=== PATIENT | male | born 1945 | race Caucasian/White ===

== ENCOUNTER 2019-09-25 10:13 | Inpatient (IN) | payer MEDICARE, MEDICAID ==
[~2019-09-25] VITALS: Ht 170.2 cm; Wt 60.8 kg
[2019-09-25] MEDS ORDERED: BACITRACIN ZINC OINT UDPKT TOP ONE (11:15)
[2019-09-25] MEDS ORDERED: TETANUS, DIPHTHERIA, PERTUSSIS VAC/PF 0.5ML (>7YR OLD) IM ONE (11:15)
[2019-09-25] MEDS ORDERED: LIDOCAINE 1%/EPI 1:100,000 10 ML VIAL IJ ONE (11:15)
[2019-09-25] MEDS ORDERED: LIDOCAINE HCL/EPINEPHRINE 1%-EPI 1:100,000 20 ML VIAL INFIL NR (11:30)
[2019-09-25] MEDS ORDERED: LORAZEPAM 2MG/ML CPJ IV ONE (13:15)
[2019-09-25] MEDS ORDERED: SODIUM CHLORIDE 0.9% 1000ML BAG (SEPSIS BOLUS) IV ONE (13:15)
[2019-09-25 15:37] LABS: BASOPHILS % 3.5 % (0.0-2.0); HEMATOCRIT. 29.9 % (42.0-52.0); HEMOGLOBIN. 9.9 g/dL (14.0-18.0); LYMPHOCYTES % 27.8 % (20.0-50.0); MEAN CORPUSCULAR HEMOGLOBIN 28.5 pg (28.0-32.0); MEAN CORPUSCULAR VOLUME 86.2 fL (80.0-94.0); MEAN PLATELET VOLUME 8.5 fl (7.4-10.4); MONOCYTES % 9.4 % (2.0-8.0); NEUTROPHILS % 57.3 % (40.0-76.0); PLATELET 298 x1000/uL (130-400); RED BLOOD CELL COUNT 3.47 mill/uL (4.7-6.1); RED CELL DISTRIBUTION WIDTH 19.6 % (11.6-14.6)
[2019-09-25 15:44] LABS: CHLORIDE 101 mEq/L (98-107)
[2019-09-25 15:49] LABS: INR 1.1
[2019-09-25 16:07] LABS: CLARITY URINE CLEAR (CLEAR); COLOR URINE YELLOW (YELLOW); KETONES URINE NEGATIVE (NEGATIVE); LEUKOCYTE ESTERASE URINE NEGATIVE (NEGATIVE); NITRITE URINE NEGATIVE (NEGATIVE); OCCULT BLOOD URINE NEGATIVE (NEGATIVE); PH URINE 5.5 (4.5-8.0); PROTEIN URINE 1+ (NEGATIVE); UROBILINOGEN URINE 0.2 E.U./dL (0.2-1.0)
[2019-09-25] MEDS ORDERED: CEFTRIAXONE 2 G PREMIX 50 ML IV ONE (16:30)
[2019-09-25] MEDS ORDERED: DEXTROSE 50% WATER 50ML SYRINGE IV PRN (18:00)
[2019-09-25] MEDS ORDERED: IPRATROPIUM/ALBUTEROL 0.5-3(2.5)MG/3ML NEB NEB PRN (18:00)
[2019-09-25] MEDS ORDERED: CLONIDINE 0.1MG TABLET PO PRN (18:00)
[2019-09-25] MEDS ORDERED: LORAZEPAM 0.5MG TABLET PO PRN (18:00)
[2019-09-25] MEDS ORDERED: ACETAMINOPHEN 650MG SUPP PR PRN (18:00)
[2019-09-25] MEDS ORDERED: DOCUSATE SODIUM 100MG CAPSULE PO PRN (18:00)
[2019-09-25] MEDS ORDERED: ONDANSETRON HCL 4MG/2ML INJ IV PRN (18:00)
[2019-09-25] MEDS ORDERED: DIPHENHYDRAMINE 50MG/ML VIAL IV PRN (18:00)
[2019-09-25] MEDS ORDERED: ASPIRIN 325MG EC TABLET PO ONE (18:00)
[2019-09-25] MEDS ORDERED: MAGNESIUM/ALUMINUM HYDROXIDE/SIMETHICONE 30ML UDC PO PRN (18:00)
[2019-09-25] MEDS ORDERED: HYDROCODONE/ACETAMINOPHEN 5/325MG TABLET PO PRN (18:00)
[2019-09-25] MEDS ORDERED: ACETAMINOPHEN 325MG TABLET PO PRN (18:00)
[2019-09-25] MEDS ORDERED: SODIUM CHLORIDE 0.9% 1,000 ML IV SCH (18:00)
[2019-09-25] MEDS ORDERED: GUAIFENESIN 200MG/10ML SUGAR FREE UDC PO PRN (18:00)
[2019-09-25] MEDS: BLOOD SUGAR DIAGNOSTIC STRIP TEST SCH (18:32)
[2019-09-25] MEDS: FAMOTIDINE 20MG/2ML VIAL IV SCH (18:32)
[2019-09-25] MEDS: INSULIN LISPRO 100 UNITS/ML SUBCUT SCH (18:57)
[2019-09-25] MEDS ORDERED: PIPERACILLIN/TAZOBACTAM 2.25 G in DEXTROSE 5% WATER 50 ML IV NR (19:00)
[2019-09-25] MEDS ORDERED: NA PHOS,M-B/NA PHOS,DI-BA ENEMA 118ML PR PRN (21:00)
[2019-09-25] MEDS ORDERED: ENOXAPARIN 80MG/0.8ML SYR SUBCUT SCH (22:15)
[2019-09-26] MEDS: PIPERACILLIN/TAZOBACTAM 2.25 G in DEXTROSE 5% WATER 50 ML IV SCH ×3 (03:58→18:30)
[2019-09-26 08:04] LABS: BASOPHILS % 2.1 % (0.0-2.0); EOSINOPHILS % 4.1 % (0.0-5.0); HEMATOCRIT. 28.6 % (42.0-52.0); HEMOGLOBIN. 9.5 g/dL (14.0-18.0); LYMPHOCYTES % 36.8 % (20.0-50.0); MEAN CORPUSCULAR HEMOGLOBIN 28.7 pg (28.0-32.0); MEAN CORPUSCULAR VOLUME 86.2 fL (80.0-94.0); MONOCYTES % 8.4 % (2.0-8.0); NEUTROPHILS % 48.6 % (40.0-76.0); PLATELET 277 x1000/uL (130-400); RED BLOOD CELL COUNT 3.32 mill/uL (4.7-6.1); RED CELL DISTRIBUTION WIDTH 19.8 % (11.6-14.6)
[2019-09-26 08:09] LABS: CHLORIDE 104 mEq/L (98-107)
[2019-09-26] MEDS: BLOOD SUGAR DIAGNOSTIC STRIP TEST SCH ×5 (08:15→20:59)
[2019-09-26 08:19] LABS: LDL CHOLESTEROL 92 mg/dL (5-100)
[2019-09-26] MEDS: INSULIN LISPRO 100 UNITS/ML SUBCUT SCH ×4 (08:20→21:15)
[2019-09-26 08:21] LABS: HDL CHOLESTEROL 53 mg/dL (40-59); T4 FREE 1.35 ng/dL (0.76-1.46)
[2019-09-26] MEDS: FAMOTIDINE 20MG/2ML VIAL IV SCH (09:00)
[2019-09-26 10:14] LABS: OPIATES URINE SCREEN NEGATIVE (NEGATIVE)
[2019-09-26 10:15] LABS: *AMPHETAMINES SCREEN URINE NEGATIVE (NEGATIVE); CANNABINOID URINE SCREEN NEGATIVE (NEGATIVE); PHENCYCLIDINE URINE SCREEN NEGATIVE (NEGATIVE)
[2019-09-26 10:16] LABS: *BARBITURATES SCREEN URINE NEGATIVE (NEGATIVE); *BENZODIAZEPINES SCREEN URINE NEGATIVE (NEGATIVE); *COCAINE SCREEN URINE NEGATIVE (NEGATIVE)
[2019-09-26 10:17] LABS: METHADONE URINE SCREEN NEGATIVE (NEGATIVE)
[2019-09-26 10:53] LABS: BG BASE EXCESS 0.4 mmol/L (-2.0-2.0); BG CARBOXYHEMOGLOBIN 0.3 % (0.5-1.5); BG DEOXYHEMOGLOBIN 3.1 % (0.0-5.0); BG FRACTION INSPIRED OXYGEN 21; BG HCO3 ACT 24.1 mmol/L (22.0-26.0); BG METHEMOGLOBIN 0.3 % (0.0-1.5); BG OXYGEN SATURATION 96.9 % (92.0-98.5); BG OXYHEMOGLOBIN 96.3 % (94.0-97.0); BG PCO2 35.6 mmHg (35.0-45.0); BG PH 7.449 (7.350-7.450); BG PO2 91.3 mmHg (75.0-100.0); BG SAMPLE SITE RIGHT RADIAL; BG TOTAL HEMOGLOBIN 10.2 g/dL (12.0-18.0); BG VENT MODE ROOM AIR
[2019-09-26 12:59] LABS: HEPATITIS B SURFACE ANTIGEN NEGATIVE
[2019-09-26 13:26] LABS: HEPATITIS A AB IGM NEGATIVE (NEGATIVE)
[2019-09-26] MEDS ORDERED: FUROSEMIDE 40MG/4ML VIAL IVP NR (14:30)
[2019-09-26] MEDS ORDERED: CEFTRIAXONE 1 G PREMIX 50 ML IV SCH ×2 (14:45→15:30)
[2019-09-26 16:00] VITALS: BP 158/78
[2019-09-26] MEDS ORDERED: HYDRALAZINE 20MG/ML VIAL IV PRN (16:00)
[2019-09-26 16:34] VITALS: BP 158/78
[2019-09-26] MEDS ORDERED: FERR-71 MT (19:21)
[2019-09-26] MEDS ORDERED: SIMV-43 MT (19:21)
[2019-09-26] MEDS ORDERED: LISI-604 MT (19:21)
[2019-09-26] MEDS ORDERED: SITA25TA3 MT (19:21)
[2019-09-26] MEDS ORDERED: FOLI0.8C MT (19:21)
[2019-09-26] MEDS ORDERED: PIOG15TA68 MT (19:21)
[2019-09-26] MEDS ORDERED: DOCU100T MT (19:21)
[2019-09-26] MEDS ORDERED: CARV6.2548 MT (19:21)
[2019-09-26] MEDS ORDERED: FAMO20TA8 PO (19:21)
[2019-09-26] MEDS ORDERED: VITA100T MT (19:21)
[2019-09-26] MEDS ORDERED: ASPI-1497 MT (19:21)
[2019-09-26] MEDS ORDERED: QUET25TA34 PO (19:21)
[2019-09-26 20:00] VITALS: BP 142/63
[2019-09-26] MEDS ORDERED: ENOXAPARIN 60MG/0.6ML SYR SUBCUT SCH (21:00)
[2019-09-27] VITALS: BP 135/61
[2019-09-27] MEDS: PIPERACILLIN/TAZOBACTAM 2.25 G in DEXTROSE 5% WATER 50 ML IV SCH ×3 (00:24→12:23)
[2019-09-27 04:00] VITALS: BP 127/76
[2019-09-27] MEDS: BLOOD SUGAR DIAGNOSTIC STRIP TEST SCH ×2 (06:39→11:56)
[2019-09-27] MEDS: INSULIN LISPRO 100 UNITS/ML SUBCUT SCH ×2 (06:45→12:55)
[2019-09-27 08:00] VITALS: BP 162/77
[2019-09-27] MEDS ORDERED: FUROSEMIDE 40MG/4ML VIAL IVP SCH (09:00)
[2019-09-27] MEDS: FAMOTIDINE 20MG/2ML VIAL IV SCH (09:55)
[2019-09-27 12:00] VITALS: BP 144/79
[2019-09-27] MEDS ORDERED: CEFTRIAXONE 1 G PREMIX 50 ML IV SCH (14:00)
[2019-09-27 14:17] VITALS: BP 144/79
== END 2019-09-27 14:58 | disposition home or self-care (01) | DRG 70 ==
LOC: ER 10:16 → 5WST 17:40 → ENRESERV 09-26 15:23
PROVIDERS: ADMIT Internal Medicine; ATTEND Internal Medicine
DX: G93.41 Metabolic encephalopathy (principal); I50.33 Acute on chronic diastolic (congestive) heart failure; I13.0 Hypertensive heart and chronic kidney disease with heart failure and stage 1 through stage 4 chronic kidney disease, or unspecified chronic kidney disease; E87.1 Hypo-osmolality and hyponatremia; I82.511 Chronic embolism and thrombosis of right femoral vein; L03.116 Cellulitis of left lower limb; L03.115 Cellulitis of right lower limb; D64.9 Anemia, unspecified; N18.9 Chronic kidney disease, unspecified; I13.10 Hypertensive heart and chronic kidney disease without heart failure, with stage 1 through stage 4 chronic kidney disease, or unspecified chronic kidney disease; F03.90 Unspecified dementia, unspecified severity, without behavioral disturbance, psychotic disturbance, mood disturbance, and anxiety; S61.412A Laceration without foreign body of left hand, initial encounter; X58.XXXA Exposure to other specified factors, initial encounter; R74.8 Abnormal levels of other serum enzymes; R94.4 Abnormal results of kidney function studies; Y93.89 Activity, other specified; Y92.89 Other specified places as the place of occurrence of the external cause; Y99.8 Other external cause status; Z87.19 Personal history of other diseases of the digestive system
CPT/HCPCS: 36415; 36600; 71045; 74176; 80053; 80061; 80305; 81003; 82140; 82375; 82805; 82962; 83605; 83880; 84145; 84439; 84443; 84484; 85025; 86705; 86709; 86803; 86850; 86900; 87340; 90715; 93005; 93306; 93970; 97162; 99285; J0696; J1200; J1650; J1815; J1940; J2060; J2543; J3490; J7030; J7060

== ENCOUNTER 2020-01-20 06:13 | Inpatient (IN) | payer MEDICARE, MEDICAID ==
[2020-01-20] VITALS (34 sets, daily range): BP systolic 82–163; BP diastolic 43–85
[~2020-01-20] VITALS: Ht 182.9 cm; Wt 64.0 kg
[~2020-01-20 06:13] MED LIST: ASPI-1497 MT; CARV6.2548 MT; DOCU100T MT; FAMO20TA8 PO; FERR-71 MT; FOLI0.8C MT; LISI-604 MT; PIOG15TA68 MT; QUET25TA34 PO; SIMV-43 MT; SITA25TA3 MT; VITA100T MT
[2020-01-20] MEDS ORDERED: ETOMIDATE 2MG/ML 10ML VIAL IV ONE (06:30)
[2020-01-20] MEDS ORDERED: SUCCINYLCHOLINE CHLORIDE 200MG/10ML IV ONE (06:30)
[2020-01-20] MEDS ORDERED: PROPOFOL 10MG/ML 100ML 100 ML IV ONE (06:45)
[2020-01-20] MEDS ORDERED: NOREPINEPHRINE 4MG/250ML PMX 250 ML IV ONE ×2 (06:53→10:30)
[2020-01-20 07:05] LABS: BASOPHILS % 0.2 % (0.0-2.0); EOSINOPHILS % 0.1 % (0.0-5.0); HEMATOCRIT. 31.5 % (42.0-52.0); HEMOGLOBIN. 10.5 g/dL (14.0-18.0); LYMPHOCYTES % 8.9 % (20.0-50.0); MEAN CORPUSCULAR HEMOGLOBIN 32.4 pg (28.0-32.0); MEAN CORPUSCULAR VOLUME 97.5 fL (80.0-94.0); MONOCYTES % 10.4 % (2.0-8.0); NEUTROPHILS % 80.4 % (40.0-76.0); PLATELET 172 x1000/uL (130-400); RED BLOOD CELL COUNT 3.23 mill/uL (4.7-6.1); RED CELL DISTRIBUTION WIDTH 15.3 % (11.6-14.6)
[2020-01-20 07:12] LABS: CHLORIDE 98 mEq/L (98-107)
[2020-01-20 07:13] LABS: INR 1.1; PROTHROMBIN TIME 11.4 sec (9.6-11.0)
[2020-01-20 07:16] LABS: ETHANOL BLOOD < 10 mg/dL
[2020-01-20 07:19] LABS: CLARITY URINE CLOUDY (CLEAR); COLOR URINE YELLOW (YELLOW); KETONES URINE TRACE (NEGATIVE); LEUKOCYTE ESTERASE URINE NEGATIVE (NEGATIVE); NITRITE URINE NEGATIVE (NEGATIVE); OCCULT BLOOD URINE NEGATIVE (NEGATIVE); PROTEIN URINE NEGATIVE (NEGATIVE); SPECIFIC GRAVITY URINE 1.019 (1.005-1.030); UROBILINOGEN URINE 0.2 E.U./dL (0.2-1.0)
[2020-01-20 07:29] LABS: *AMPHETAMINES SCREEN URINE NEGATIVE (NEGATIVE); *BARBITURATES SCREEN URINE NEGATIVE (NEGATIVE); *BENZODIAZEPINES SCREEN URINE PRESUMTIVE POSITIVE (NEGATIVE); *COCAINE SCREEN URINE NEGATIVE (NEGATIVE)
[2020-01-20 07:30] LABS: CANNABINOID URINE SCREEN NEGATIVE (NEGATIVE); METHADONE URINE SCREEN NEGATIVE (NEGATIVE); OPIATES URINE SCREEN NEGATIVE (NEGATIVE); PHENCYCLIDINE URINE SCREEN NEGATIVE (NEGATIVE)
[2020-01-20] MEDS ORDERED: PIPERACILLIN/TAZ 3.375G PREMIX 50 ML IV SCH (08:00)
[2020-01-20] MEDS ORDERED: CALCIUM CHLORIDE 1,000 MG in DEXT 5% WATER 90 ML IV ONE (08:00)
[2020-01-20] MEDS ORDERED: INSULIN REGULAR 0.5UNIT/ML SYR(NEO) IV ONE (08:00)
[2020-01-20] MEDS ORDERED: ALBUTEROL (0.5%) 2.5MG/0.5ML NEB HHN ONE (08:00)
[2020-01-20] MEDS ORDERED: VANCOMYCIN 1 G PREMIX 200 ML IV SCH ×2 (08:00→12:00)
[2020-01-20] MEDS ORDERED: INSULIN REGULAR (HUMULIN R) 300UNITS/3ML IV SCH (08:00)
[2020-01-20] MEDS ORDERED: DEXTROSE 50% WATER 50ML SYRINGE IV ONE (08:00)
[2020-01-20] MEDS ORDERED: PIPERACILLIN/TAZOBACTAM 3.375GM/50ML PREMIX IV ONE (08:00)
[2020-01-20 08:06] LABS: BG BASE EXCESS -6.9 mmol/L (-2.0-2.0); BG CARBOXYHEMOGLOBIN 0.3 % (0.5-1.5); BG DEOXYHEMOGLOBIN 1.1 % (0.0-5.0); BG FRACTION INSPIRED OXYGEN 100; BG HCO3 ACT 19.3 mmol/L (22.0-26.0); BG METHEMOGLOBIN 0.2 % (0.0-1.5); BG OXYGEN SATURATION 98.9 % (92.0-98.5); BG OXYHEMOGLOBIN 98.4 % (94.0-97.0); BG PCO2 41.3 mmHg (35.0-45.0); BG PH 7.287 (7.350-7.450); BG PO2 264.3 mmHg (75.0-100.0); BG SAMPLE SITE RIGHT BRACHIAL; BG TIDAL VOLUME(mL) 450 mL; BG TOTAL HEMOGLOBIN 9.9 g/dL (12.0-18.0); BG VENT MODE VENT - A/C; BG VENT RATE 16 set
[2020-01-20] MEDS ORDERED: NA PHOS,M-B/NA PHOS,DI-BA ENEMA 118ML PR PRN (11:45)
[2020-01-20] MEDS ORDERED: LORAZEPAM 0.5MG TABLET PO PRN (11:45)
[2020-01-20] MEDS ORDERED: GUAIFENESIN 200MG/10ML SUGAR FREE UDC PO PRN (11:45)
[2020-01-20] MEDS ORDERED: MAGNESIUM/ALUMINUM HYDROXIDE/SIMETHICONE 30ML UDC PO PRN (11:45)
[2020-01-20] MEDS ORDERED: HYDROCODONE/ACETAMINOPHEN 5/325MG TABLET PO PRN (11:45)
[2020-01-20] MEDS ORDERED: DIPHENHYDRAMINE 50MG/ML VIAL IV PRN (11:45)
[2020-01-20] MEDS ORDERED: MORPHINE SULFATE 2 MG/ML CPJ (NOT FOR IM USE) IV PRN (11:45)
[2020-01-20] MEDS ORDERED: CLONIDINE 0.1MG TABLET PO PRN (11:45)
[2020-01-20] MEDS ORDERED: ACETAMINOPHEN 325MG TABLET PO PRN (11:45)
[2020-01-20] MEDS ORDERED: ACETAMINOPHEN 650MG SUPP PR PRN (11:45)
[2020-01-20] MEDS ORDERED: IPRATROPIUM/ALBUTEROL 0.5-3(2.5)MG/3ML NEB NEB PRN (11:45)
[2020-01-20] MEDS ORDERED: ONDANSETRON HCL 4MG/2ML INJ IV PRN (11:45)
[2020-01-20] MEDS ORDERED: DOCUSATE SODIUM 100MG CAPSULE PO PRN (11:45)
[2020-01-20 11:59] LABS: BG BASE EXCESS 3.6 mmol/L (-2.0-2.0); BG CARBOXYHEMOGLOBIN 0.3 % (0.5-1.5); BG DEOXYHEMOGLOBIN 1.4 % (0.0-5.0); BG HCO3 ACT 30.4 mmol/L (22.0-26.0); BG METHEMOGLOBIN 0.3 % (0.0-1.5); BG OXYGEN SATURATION 98.6 % (92.0-98.5); BG PCO2 57.3 mmHg (35.0-45.0); BG PH 7.342 (7.350-7.450); BG PO2 211.8 mmHg (75.0-100.0); BG SAMPLE SITE RIGHT RADIAL; BG TIDAL VOLUME(mL) 450 mL; BG TOTAL HEMOGLOBIN 10.9 g/dL (12.0-18.0); BG VENT MODE VENT - A/C; BG VENT RATE 16 set
[2020-01-20] MEDS: IPRATROPIUM/ALBUTEROL 0.5-3(2.5)MG/3ML NEB NEB SCH ×2 (14:47→20:10)
[2020-01-20] MEDS: PROPOFOL 10MG/ML 100ML 100 ML IV PRN ×2 (15:35→19:14)
[2020-01-20] MEDS ORDERED: PIPERACILLIN/TAZOBACTAM 2.25 G in DEXTROSE 5% WATER 50 ML IV SCH (16:00)
[2020-01-20] MEDS ORDERED: DEXTROSE 50% WATER 50ML SYRINGE IV PRN (16:45)
[2020-01-20] MEDS ORDERED: INSULIN LISPRO 100 UNITS/ML SUBCUT SCH (17:00)
[2020-01-20] MEDS: BLOOD SUGAR DIAGNOSTIC STRIP TEST SCH ×2 (17:30→21:57)
[2020-01-20 17:36] LABS: CREATINE KINASE MB FRACTION 1.4 ng/mL (0.5-3.6)
[2020-01-20] MEDS: METHYLPREDNISOLONE SOD SUCC 40 MG/ML VIAL IV SCH (17:55)
[2020-01-20] MEDS: SODIUM CHLORIDE 0.45% 1,000 ML IV SCH (17:55)
[2020-01-20] MEDS: FAMOTIDINE 20MG/2ML VIAL IV SCH (17:56)
[2020-01-20] MEDS: ASPIRIN 81MG TABLET PO SCH (17:56)
[2020-01-20] MEDS ORDERED: ENOXAPARIN 30MG/0.3ML SYR SUBCUT SCH (18:00)
[2020-01-20] MEDS: INSULIN LISPRO 100 UNITS/ML SUBCUT SCH ×2 (18:16→22:06)
[2020-01-20] MEDS ORDERED: VANCOMYCIN 1 G PREMIX 200 ML IV NR (19:00)
[2020-01-20] MEDS: PIPERACILLIN/TAZOBACTAM 2.25 G in DEXTROSE 5% WATER 50 ML IV SCH ×2 (19:03→23:47)
[2020-01-21] VITALS (99 sets, daily range): BP systolic 72–169; BP diastolic 45–76
[2020-01-21 00:01] LABS: CREATINE KINASE 64 IU/L (39-308)
[2020-01-21 00:02] LABS: CREATINE KINASE MB FRACTION < 1.0 ng/mL (0.5-3.6)
[2020-01-21] MEDS: IPRATROPIUM/ALBUTEROL 0.5-3(2.5)MG/3ML NEB NEB SCH ×4 (00:44→20:55)
[2020-01-21] MEDS ORDERED: NOREPINEPHRINE 8 MG in DEXT 5% WATER 242 ML IV PRN (01:30)
[2020-01-21] MEDS: METHYLPREDNISOLONE SOD SUCC 40 MG/ML VIAL IV SCH ×3 (02:37→17:51)
[2020-01-21 04:55] LABS: HEMATOCRIT. 32.5 % (42.0-52.0); MEAN CORPUSCULAR HEMOGLOBIN 31.3 pg (28.0-32.0); MEAN CORPUSCULAR VOLUME 92.6 fL (80.0-94.0); MEAN PLATELET VOLUME 8.2 fl (7.4-10.4); PLATELET 157 x1000/uL (130-400); RED BLOOD CELL COUNT 3.51 mill/uL (4.7-6.1)
[2020-01-21] MEDS: PIPERACILLIN/TAZOBACTAM 2.25 G in DEXTROSE 5% WATER 50 ML IV SCH ×3 (05:05→17:51)
[2020-01-21 05:20] LABS: CHLORIDE 100 mEq/L (98-107)
[2020-01-21 05:28] LABS: LDL CHOLESTEROL 35 mg/dL (5-100)
[2020-01-21 05:30] LABS: HDL CHOLESTEROL 83 mg/dL (40-59)
[2020-01-21] MEDS: INSULIN LISPRO 100 UNITS/ML SUBCUT SCH ×4 (06:59→21:52)
[2020-01-21] MEDS: BLOOD SUGAR DIAGNOSTIC STRIP TEST SCH ×4 (06:59→21:49)
[2020-01-21 07:33] LABS: BG BASE EXCESS 3.3 mmol/L (-2.0-2.0); BG CARBOXYHEMOGLOBIN 0.3 % (0.5-1.5); BG DEOXYHEMOGLOBIN 1.1 % (0.0-5.0); BG FRACTION INSPIRED OXYGEN 80; BG HCO3 ACT 29.2 mmol/L (22.0-26.0); BG METHEMOGLOBIN 0.3 % (0.0-1.5); BG OXYGEN SATURATION 98.9 % (92.0-98.5); BG OXYHEMOGLOBIN 98.3 % (94.0-97.0); BG PCO2 50.6 mmHg (35.0-45.0); BG PH 7.379 (7.350-7.450); BG PO2 257.5 mmHg (75.0-100.0); BG SAMPLE SITE RIGHT RADIAL; BG TIDAL VOLUME(mL) 450 mL; BG TOTAL HEMOGLOBIN 10.5 g/dL (12.0-18.0); BG VENT MODE VENT - A/C; BG VENT RATE 16 set
[2020-01-21] MEDS: FAMOTIDINE 20MG/2ML VIAL IV SCH (08:32)
[2020-01-21] MEDS: ASPIRIN 81MG TABLET PO SCH (08:32)
[2020-01-21 09:08] LABS: PLATELET ESTIMATE NORMAL
[2020-01-21] MEDS ORDERED: SODIUM POLYSTYRENE SULFONATE 15 G/60 ML BOT PO NR (10:30)
[2020-01-21] MEDS ORDERED: RISPERIDONE 0.5MG TABLET PO SCH (13:15)
[2020-01-21] MEDS ORDERED: INSULIN GLARGINE UD 100 UNITS/ML SYR SUBCUT NR (14:30)
[2020-01-21] MEDS: SODIUM CHLORIDE 0.45% 1,000 ML IV SCH (14:38)
[2020-01-21] MEDS: VALPROIC ACID 250MG CAPSULE PO SCH ×2 (16:51→16:57)
[2020-01-21] MEDS: VALPROATE SODIUM 250MG/5ML UDC GT SCH (17:51)
[2020-01-21] MEDS ORDERED: ENOXAPARIN 40MG/0.4ML SYR SUBCUT SCH (18:00)
[2020-01-22] VITALS (82 sets, daily range): BP systolic 105–159; BP diastolic 47–106
[2020-01-22] MEDS: PROPOFOL 10MG/ML 100ML 100 ML IV PRN ×2 (00:02→07:03)
[2020-01-22] MEDS: PIPERACILLIN/TAZOBACTAM 2.25 G in DEXTROSE 5% WATER 50 ML IV SCH ×3 (00:02→11:43)
[2020-01-22] MEDS: IPRATROPIUM/ALBUTEROL 0.5-3(2.5)MG/3ML NEB NEB SCH ×4 (01:17→20:15)
[2020-01-22] MEDS: METHYLPREDNISOLONE SOD SUCC 40 MG/ML VIAL IV SCH ×3 (03:24→17:58)
[2020-01-22 05:59] LABS: HEMATOCRIT. 27.9 % (42.0-52.0); HEMOGLOBIN. 9.4 g/dL (14.0-18.0); MEAN CORPUSCULAR HEMOGLOBIN 30.9 pg (28.0-32.0); MEAN CORPUSCULAR VOLUME 91.9 fL (80.0-94.0); MEAN PLATELET VOLUME 8.9 fl (7.4-10.4); PLATELET 135 x1000/uL (130-400); RED BLOOD CELL COUNT 3.04 mill/uL (4.7-6.1); RED CELL DISTRIBUTION WIDTH 14.8 % (11.6-14.6)
[2020-01-22 06:00] LABS: CHLORIDE 99 mEq/L (98-107)
[2020-01-22] MEDS: BLOOD SUGAR DIAGNOSTIC STRIP TEST SCH ×4 (06:37→21:06)
[2020-01-22] MEDS: INSULIN LISPRO 100 UNITS/ML SUBCUT SCH ×4 (06:37→21:10)
[2020-01-22 08:24] LABS: BG BASE EXCESS 6.3 mmol/L (-2.0-2.0); BG FRACTION INSPIRED OXYGEN 50; BG HCO3 ACT 30.7 mmol/L (22.0-26.0); BG PCO2 42.7 mmHg (35.0-45.0); BG PH 7.474 (7.350-7.450); BG PO2 138.7 mmHg (75.0-100.0); BG SAMPLE SITE RIGHT RADIAL; BG TIDAL VOLUME(mL) 450 mL; BG VENT MODE VENT - A/C; BG VENT RATE 16 set
[2020-01-22 08:51] LABS: PLATELET ESTIMATE NORMAL
[2020-01-22] MEDS: VALPROATE SODIUM 250MG/5ML UDC GT SCH ×2 (09:09→17:58)
[2020-01-22] MEDS: ASPIRIN 81MG TABLET PO SCH (09:10)
[2020-01-22] MEDS: FAMOTIDINE 20MG/2ML VIAL IV SCH (09:15)
[2020-01-22] MEDS: SODIUM CHLORIDE 0.45% 1,000 ML IV SCH (09:30)
[2020-01-22] MEDS ORDERED: INSULIN GLARGINE UD 100 UNITS/ML SYR SUBCUT SCH (10:00)
[2020-01-22] MEDS ORDERED: INSULIN LISPRO 100 UNITS/ML SUBCUT NR (10:45)
[2020-01-22] MEDS: VANCOMYCIN 1 G PREMIX 200 ML IV SCH (12:13)
[2020-01-22] MEDS ORDERED: INSULIN GLARGINE UD 100 UNITS/ML SYR SUBCUT NR (13:00)
[2020-01-22] MEDS ORDERED: AZITHROMYCIN 500 MG TABLET GT NR (14:00)
[2020-01-22] MEDS: CEFEPIME 1,000 MG in DEXTROSE 5% WATER 50 ML IV SCH (16:47)
[2020-01-22 17:43] LABS: HEMATOCRIT 28.6 % (42.0-52.0); HEMOGLOBIN 9.6 g/dL (14.0-18.0)
[2020-01-22 17:51] LABS: TOTAL IRON BINDING CAPACITY 266 ug/dL (250-450)
[2020-01-22] MEDS: METRONIDAZOLE 500MG TABLET PO SCH (21:10)
[2020-01-23] VITALS (91 sets, daily range): BP systolic 96–164; BP diastolic 47–92
[2020-01-23] MEDS: IPRATROPIUM/ALBUTEROL 0.5-3(2.5)MG/3ML NEB NEB SCH ×4 (01:57→21:10)
[2020-01-23] MEDS: PROPOFOL 10MG/ML 100ML 100 ML IV PRN ×2 (02:15→09:50)
[2020-01-23] MEDS: CEFEPIME 1,000 MG in DEXTROSE 5% WATER 50 ML IV SCH ×2 (03:41→16:31)
[2020-01-23] MEDS: SODIUM CHLORIDE 0.45% 1,000 ML IV SCH (05:15)
[2020-01-23] MEDS: METHYLPREDNISOLONE SOD SUCC 40 MG/ML VIAL IV SCH ×2 (05:16→17:09)
[2020-01-23] MEDS: VANCOMYCIN 1 G PREMIX 200 ML IV SCH (05:16)
[2020-01-23] MEDS: BLOOD SUGAR DIAGNOSTIC STRIP TEST SCH ×4 (05:41→21:00)
[2020-01-23 05:49] LABS: CHLORIDE 101 mEq/L (98-107); HEMATOCRIT. 28.8 % (42.0-52.0); HEMOGLOBIN. 9.9 g/dL (14.0-18.0); MEAN CORPUSCULAR HEMOGLOBIN 31.7 pg (28.0-32.0); MEAN CORPUSCULAR VOLUME 92.2 fL (80.0-94.0); MEAN PLATELET VOLUME 9.2 fl (7.4-10.4); PLATELET 151 x1000/uL (130-400); RED BLOOD CELL COUNT 3.12 mill/uL (4.7-6.1); RED CELL DISTRIBUTION WIDTH 14.7 % (11.6-14.6)
[2020-01-23] MEDS: INSULIN LISPRO 100 UNITS/ML SUBCUT SCH ×4 (06:03→21:00)
[2020-01-23 06:25] LABS: VITAMIN B12 SERUM 1566 pg/mL (211-911)
[2020-01-23] MEDS: FAMOTIDINE 20MG/2ML VIAL IV SCH (08:07)
[2020-01-23] MEDS: ASPIRIN 81MG TABLET PO SCH (08:07)
[2020-01-23] MEDS: VALPROATE SODIUM 250MG/5ML UDC GT SCH ×2 (08:07→16:31)
[2020-01-23] MEDS: METRONIDAZOLE 500MG TABLET PO SCH ×2 (08:07→21:00)
[2020-01-23 09:37] LABS: BG BASE EXCESS 6.2 mmol/L (-2.0-2.0); BG CARBOXYHEMOGLOBIN 0.1 % (0.5-1.5); BG DEOXYHEMOGLOBIN 1.4 % (0.0-5.0); BG FRACTION INSPIRED OXYGEN 40; BG HCO3 ACT 30.5 mmol/L (22.0-26.0); BG OXYGEN SATURATION 98.6 % (92.0-98.5); BG OXYHEMOGLOBIN 98.5 % (94.0-97.0); BG PCO2 42.9 mmHg (35.0-45.0); BG PO2 175.1 mmHg (75.0-100.0); BG SAMPLE SITE RIGHT RADIAL; BG TIDAL VOLUME(mL) 450 mL; BG TOTAL HEMOGLOBIN 12.1 g/dL (12.0-18.0); BG VENT MODE VENT - A/C; BG VENT RATE 16 set
[2020-01-23] MEDS: AMLODIPINE 2.5MG TABLET PO SCH ×2 (09:49→21:00)
[2020-01-23] MEDS: INSULIN GLARGINE UD 100 UNITS/ML SYR SUBCUT SCH (09:50)
[2020-01-23 10:27] LABS: PLATELET ESTIMATE NORMAL
[2020-01-23] MEDS: FERROUS SULFATE 325MG TABLET PO SCH ×2 (11:36→16:31)
[2020-01-23] MEDS: AZITHROMYCIN 250 MG TABLET PO SCH (13:55)
[2020-01-23 14:01] LABS: BG BASE EXCESS 7.5 mmol/L (-2.0-2.0); BG DEOXYHEMOGLOBIN 1.4 % (0.0-5.0); BG FRACTION INSPIRED OXYGEN 40; BG HCO3 ACT 30.9 mmol/L (22.0-26.0); BG METHEMOGLOBIN 0.3 % (0.0-1.5); BG OXYGEN SATURATION 98.6 % (92.0-98.5); BG OXYHEMOGLOBIN 98.3 % (94.0-97.0); BG PCO2 38.4 mmHg (35.0-45.0); BG PH 7.523 (7.350-7.450); BG PO2 164.9 mmHg (75.0-100.0); BG PRESSURE SUPPORT 10; BG SAMPLE SITE RIGHT RADIAL; BG VENT MODE VENT - CPAP
[2020-01-23] MEDS: HALOPERIDOL LACTATE 5MG/ML VIAL IM PRN (16:56)
[2020-01-23 17:29] LABS: BG CARBOXYHEMOGLOBIN 0.3 % (0.5-1.5); BG DEOXYHEMOGLOBIN 1.8 % (0.0-5.0); BG FRACTION INSPIRED OXYGEN 35; BG HCO3 ACT 34.5 mmol/L (22.0-26.0); BG OXYGEN SATURATION 98.2 % (92.0-98.5); BG OXYHEMOGLOBIN 97.9 % (94.0-97.0); BG PCO2 52.9 mmHg (35.0-45.0); BG PH 7.432 (7.350-7.450); BG PO2 138.8 mmHg (75.0-100.0); BG SAMPLE SITE LEFT RADIAL; BG TOTAL HEMOGLOBIN 9.6 g/dL (12.0-18.0); BG VENT MODE MASK - AEROSOL
[2020-01-24] VITALS (45 sets, daily range): BP systolic 73–159; BP diastolic 42–77
[2020-01-24] MEDS: VANCOMYCIN 1 G PREMIX 200 ML IV SCH (00:16)
[2020-01-24] MEDS: IPRATROPIUM/ALBUTEROL 0.5-3(2.5)MG/3ML NEB NEB SCH ×4 (02:24→20:40)
[2020-01-24] MEDS: CEFEPIME 1,000 MG in DEXTROSE 5% WATER 50 ML IV SCH ×2 (03:21→15:16)
[2020-01-24 05:23] LABS: HEMATOCRIT. 36.8 % (42.0-52.0); LYMPHOCYTES % 10.8 % (20.0-50.0); MEAN CORPUSCULAR HEMOGLOBIN 31.1 pg (28.0-32.0); MEAN CORPUSCULAR VOLUME 95.5 fL (80.0-94.0); MEAN PLATELET VOLUME 9.2 fl (7.4-10.4); MONOCYTES % 4.6 % (2.0-8.0); NEUTROPHILS % 84.6 % (40.0-76.0); PLATELET 148 x1000/uL (130-400); RED BLOOD CELL COUNT 3.85 mill/uL (4.7-6.1); RED CELL DISTRIBUTION WIDTH 15.3 % (11.6-14.6)
[2020-01-24 05:32] LABS: CHLORIDE 100 mEq/L (98-107)
[2020-01-24] MEDS: FERROUS SULFATE 325MG TABLET PO SCH ×2 (06:50→17:41)
[2020-01-24] MEDS: METHYLPREDNISOLONE SOD SUCC 40 MG/ML VIAL IV SCH ×2 (06:50→17:41)
[2020-01-24] MEDS: HALOPERIDOL LACTATE 5MG/ML VIAL IM PRN ×2 (07:01→15:16)
[2020-01-24] MEDS: BLOOD SUGAR DIAGNOSTIC STRIP TEST SCH ×4 (07:23→21:00)
[2020-01-24] MEDS: INSULIN LISPRO 100 UNITS/ML SUBCUT SCH ×4 (07:26→21:00)
[2020-01-24 09:08] LABS: BG BASE EXCESS 8.3 mmol/L (-2.0-2.0); BG CARBOXYHEMOGLOBIN 0.3 % (0.5-1.5); BG DEOXYHEMOGLOBIN 1.7 % (0.0-5.0); BG FRACTION INSPIRED OXYGEN 35; BG HCO3 ACT 33.1 mmol/L (22.0-26.0); BG METHEMOGLOBIN 0.3 % (0.0-1.5); BG OXYGEN SATURATION 98.3 % (92.0-98.5); BG OXYHEMOGLOBIN 97.7 % (94.0-97.0); BG PCO2 47.9 mmHg (35.0-45.0); BG PH 7.458 (7.350-7.450); BG PO2 160.5 mmHg (75.0-100.0); BG SAMPLE SITE RIGHT RADIAL; BG TOTAL HEMOGLOBIN 10.3 g/dL (12.0-18.0); BG VENT MODE MASK - AEROSOL
[2020-01-24] MEDS: ASPIRIN 81MG TABLET PO SCH (09:14)
[2020-01-24] MEDS: VALPROATE SODIUM 250MG/5ML UDC GT SCH ×2 (09:14→17:41)
[2020-01-24] MEDS: FAMOTIDINE 20MG/2ML VIAL IV SCH (09:14)
[2020-01-24] MEDS: AMLODIPINE 2.5MG TABLET PO SCH ×2 (09:14→20:30)
[2020-01-24] MEDS: SODIUM CHLORIDE 0.45% 1,000 ML IV SCH (09:15)
[2020-01-24] MEDS: METRONIDAZOLE 500MG TABLET PO SCH ×2 (09:15→20:29)
[2020-01-24] MEDS: INSULIN GLARGINE UD 100 UNITS/ML SYR SUBCUT SCH (09:16)
[2020-01-24] MEDS ORDERED: VANCOMYCIN 750 MG PREMIX 150 ML IV SCH (13:00)
[2020-01-24] MEDS: AZITHROMYCIN 250 MG TABLET PO SCH (14:02)
[2020-01-25] VITALS (25 sets, daily range): BP systolic 95–158; BP diastolic 44–81
[2020-01-25] MEDS: IPRATROPIUM/ALBUTEROL 0.5-3(2.5)MG/3ML NEB NEB SCH ×4 (01:06→21:06)
[2020-01-25 05:13] LABS: HEMATOCRIT. 35.4 % (42.0-52.0); HEMOGLOBIN. 11.7 g/dL (14.0-18.0); MEAN CORPUSCULAR HEMOGLOBIN 30.6 pg (28.0-32.0); MEAN CORPUSCULAR VOLUME 92.6 fL (80.0-94.0); MEAN PLATELET VOLUME 9.2 fl (7.4-10.4); PLATELET 155 x1000/uL (130-400); RED BLOOD CELL COUNT 3.82 mill/uL (4.7-6.1); RED CELL DISTRIBUTION WIDTH 15.3 % (11.6-14.6)
[2020-01-25 05:14] LABS: CHLORIDE 97 mEq/L (98-107)
[2020-01-25] MEDS: HALOPERIDOL LACTATE 5MG/ML VIAL IM PRN (06:06)
[2020-01-25] MEDS: METHYLPREDNISOLONE SOD SUCC 40 MG/ML VIAL IV SCH ×2 (06:06→17:20)
[2020-01-25] MEDS: CEFEPIME 1,000 MG in DEXTROSE 5% WATER 50 ML IV SCH (06:07)
[2020-01-25] MEDS: BLOOD SUGAR DIAGNOSTIC STRIP TEST SCH ×4 (06:55→21:09)
[2020-01-25] MEDS: FERROUS SULFATE 325MG TABLET PO SCH ×2 (07:00→17:20)
[2020-01-25] MEDS: SODIUM CHLORIDE 0.45% 1,000 ML IV SCH (07:00)
[2020-01-25] MEDS: INSULIN LISPRO 100 UNITS/ML SUBCUT SCH ×4 (07:01→21:08)
[2020-01-25 08:33] LABS: PLATELET ESTIMATE NORMAL
[2020-01-25] MEDS: METRONIDAZOLE 500MG TABLET PO SCH (08:51)
[2020-01-25] MEDS: VALPROATE SODIUM 250MG/5ML UDC GT SCH ×2 (08:51→17:20)
[2020-01-25] MEDS: FAMOTIDINE 20MG/2ML VIAL IV SCH (08:51)
[2020-01-25] MEDS: AMLODIPINE 2.5MG TABLET PO SCH ×2 (08:52→20:28)
[2020-01-25] MEDS: ASPIRIN 81MG TABLET PO SCH (08:52)
[2020-01-25 09:40] LABS: BG BASE EXCESS 10.5 mmol/L (-2.0-2.0); BG CARBOXYHEMOGLOBIN 0.2 % (0.5-1.5); BG DEOXYHEMOGLOBIN 1.5 % (0.0-5.0); BG FRACTION INSPIRED OXYGEN 35; BG HCO3 ACT 36.9 mmol/L (22.0-26.0); BG METHEMOGLOBIN 0.3 % (0.0-1.5); BG OXYGEN SATURATION 98.5 % (92.0-98.5); BG PCO2 59.6 mmHg (35.0-45.0); BG PO2 148.3 mmHg (75.0-100.0); BG SAMPLE SITE RIGHT RADIAL; BG TOTAL HEMOGLOBIN 10.5 g/dL (12.0-18.0); BG VENT MODE MASK - AEROSOL
[2020-01-25] MEDS: INSULIN GLARGINE UD 100 UNITS/ML SYR SUBCUT SCH (10:19)
[2020-01-25] MEDS ORDERED: PIPERACILLIN/TAZOBACTAM 3.375 G in DEXT 5% WATER 100 ML IV SCH (15:00)
[2020-01-25] MEDS: MEROPENEM 1,000 MG in SODIUM CHLORIDE 0.9% 100 ML IV SCH ×2 (15:54→22:21)
[2020-01-26] VITALS (25 sets, daily range): BP systolic 108–163; BP diastolic 54–103
[2020-01-26] MEDS: IPRATROPIUM/ALBUTEROL 0.5-3(2.5)MG/3ML NEB NEB SCH ×4 (01:18→20:37)
[2020-01-26] MEDS: HALOPERIDOL LACTATE 5MG/ML VIAL IM PRN (01:50)
[2020-01-26] MEDS ORDERED: MORPHINE SULFATE 2 MG/ML CPJ (NOT FOR IM USE) IV PRN (05:50)
[2020-01-26] MEDS: MEROPENEM 1,000 MG in SODIUM CHLORIDE 0.9% 100 ML IV SCH ×3 (06:04→21:49)
[2020-01-26] MEDS: METHYLPREDNISOLONE SOD SUCC 40 MG/ML VIAL IV SCH ×2 (06:04→17:01)
[2020-01-26] MEDS: BLOOD SUGAR DIAGNOSTIC STRIP TEST SCH ×4 (06:04→20:08)
[2020-01-26] MEDS: INSULIN LISPRO 100 UNITS/ML SUBCUT SCH ×4 (06:05→20:10)
[2020-01-26] MEDS: FERROUS SULFATE 325MG TABLET PO SCH ×2 (06:06→16:58)
[2020-01-26 06:20] LABS: HEMATOCRIT. 34.5 % (42.0-52.0); HEMOGLOBIN. 11.6 g/dL (14.0-18.0); LYMPHOCYTES % 9.9 % (20.0-50.0); MEAN CORPUSCULAR VOLUME 91.9 fL (80.0-94.0); MEAN PLATELET VOLUME 8.8 fl (7.4-10.4); MONOCYTES % 9.1 % (2.0-8.0); PLATELET 195 x1000/uL (130-400); RED BLOOD CELL COUNT 3.75 mill/uL (4.7-6.1); RED CELL DISTRIBUTION WIDTH 14.8 % (11.6-14.6)
[2020-01-26 06:23] LABS: CHLORIDE 95 mEq/L (98-107)
[2020-01-26 06:41] LABS: VALPROIC ACID < 3.0 ug/mL (50-100)
[2020-01-26 07:04] LABS: VITAMIN B12 SERUM 1992 pg/mL (211-911)
[2020-01-26] MEDS: ASPIRIN 81MG TABLET PO SCH (09:00)
[2020-01-26] MEDS: VALPROATE SODIUM 250MG/5ML UDC GT SCH ×2 (11:05→16:58)
[2020-01-26] MEDS: AMLODIPINE 2.5MG TABLET PO SCH ×2 (11:05→20:01)
[2020-01-26] MEDS: FAMOTIDINE 20MG/2ML VIAL IV SCH (11:06)
[2020-01-26] MEDS: INSULIN GLARGINE UD 100 UNITS/ML SYR SUBCUT SCH (12:00)
[2020-01-27] VITALS: BP 151/66
[2020-01-27 04:00] VITALS: BP 138/62
[2020-01-27] MEDS: MEROPENEM 1,000 MG in SODIUM CHLORIDE 0.9% 100 ML IV SCH ×3 (05:56→21:10)
[2020-01-27 06:29] LABS: BASOPHILS % 0.1 % (0.0-2.0); EOSINOPHILS % 0.2 % (0.0-5.0); HEMATOCRIT. 32.4 % (42.0-52.0); LYMPHOCYTES % 24.5 % (20.0-50.0); MEAN CORPUSCULAR HEMOGLOBIN 30.9 pg (28.0-32.0); MEAN CORPUSCULAR VOLUME 91.3 fL (80.0-94.0); MEAN PLATELET VOLUME 8.3 fl (7.4-10.4); MONOCYTES % 13.2 % (2.0-8.0); PLATELET 220 x1000/uL (130-400); RED BLOOD CELL COUNT 3.55 mill/uL (4.7-6.1); RED CELL DISTRIBUTION WIDTH 14.5 % (11.6-14.6)
[2020-01-27 06:31] LABS: CHLORIDE 93 mEq/L (98-107)
[2020-01-27] MEDS: BLOOD SUGAR DIAGNOSTIC STRIP TEST SCH ×4 (06:38→21:10)
[2020-01-27 08:32] VITALS: BP 125/68
[2020-01-27] MEDS: IPRATROPIUM/ALBUTEROL 0.5-3(2.5)MG/3ML NEB NEB SCH ×3 (08:58→22:07)
[2020-01-27] MEDS ORDERED: QUETIAPINE FUMARATE 25MG TABLET PO SCH (09:30)
[2020-01-27] MEDS: FERROUS SULFATE 325MG TABLET PO SCH ×2 (09:38→17:51)
[2020-01-27] MEDS: AMLODIPINE 2.5MG TABLET PO SCH ×2 (09:38→21:10)
[2020-01-27] MEDS: VALPROATE SODIUM 250MG/5ML UDC GT SCH ×2 (09:38→17:51)
[2020-01-27] MEDS: ASPIRIN 81MG TABLET PO SCH (09:38)
[2020-01-27] MEDS: INSULIN LISPRO 100 UNITS/ML SUBCUT SCH ×4 (09:39→21:20)
[2020-01-27] MEDS: PREDNISONE 20MG TABLET PO SCH (09:46)
[2020-01-27] MEDS: INSULIN GLARGINE UD 100 UNITS/ML SYR SUBCUT SCH (09:47)
[2020-01-27] MEDS: FAMOTIDINE 20MG/2ML VIAL IV SCH (09:56)
[2020-01-27 12:07] VITALS: BP 112/46
[2020-01-27 16:12] VITALS: BP 110/44
[2020-01-27] MEDS ORDERED: INSULIN LISPRO 100 UNITS/ML SUBCUT NR (17:45)
[2020-01-27] MEDS: QUETIAPINE FUMARATE 25MG TABLET PO SCH (17:54)
[2020-01-27] MEDS ORDERED: INSULIN GLARGINE UD 100 UNITS/ML SYR SUBCUT SCH (22:00)
[2020-01-28] MEDS: IPRATROPIUM/ALBUTEROL 0.5-3(2.5)MG/3ML NEB NEB SCH ×3 (03:34→15:10)
[2020-01-28 05:48] LABS: BASOPHILS % 0.1 % (0.0-2.0); EOSINOPHILS % 0.5 % (0.0-5.0); HEMATOCRIT. 32.4 % (42.0-52.0); LYMPHOCYTES % 33.3 % (20.0-50.0); MEAN CORPUSCULAR HEMOGLOBIN 30.9 pg (28.0-32.0); MEAN CORPUSCULAR VOLUME 90.7 fL (80.0-94.0); MONOCYTES % 13.4 % (2.0-8.0); NEUTROPHILS % 52.7 % (40.0-76.0); PLATELET 247 x1000/uL (130-400); RED BLOOD CELL COUNT 3.57 mill/uL (4.7-6.1); RED CELL DISTRIBUTION WIDTH 14.4 % (11.6-14.6)
[2020-01-28 06:26] LABS: CHLORIDE 95 mEq/L (98-107)
[2020-01-28] MEDS: BLOOD SUGAR DIAGNOSTIC STRIP TEST SCH ×3 (06:34→17:26)
[2020-01-28] MEDS: INSULIN LISPRO 100 UNITS/ML SUBCUT SCH ×2 (07:50→14:03)
[2020-01-28 08:00] VITALS: BP 121/67
[2020-01-28] MEDS: VALPROATE SODIUM 250MG/5ML UDC GT SCH ×2 (10:03→17:26)
[2020-01-28] MEDS: FAMOTIDINE 20MG/2ML VIAL IV SCH (10:04)
[2020-01-28] MEDS: AMLODIPINE 2.5MG TABLET PO SCH (10:04)
[2020-01-28] MEDS: QUETIAPINE FUMARATE 25MG TABLET PO SCH ×2 (10:04→17:26)
[2020-01-28] MEDS: ASPIRIN 81MG TABLET PO SCH (10:05)
[2020-01-28] MEDS: FERROUS SULFATE 325MG TABLET PO SCH ×2 (10:05→17:26)
[2020-01-28] MEDS: PREDNISONE 20MG TABLET PO SCH (10:05)
[2020-01-28 12:00] VITALS: BP 125/55
[2020-01-28 16:00] VITALS: BP 120/44
[2020-01-28 16:19] VITALS: BP 120/44
== END 2020-01-28 20:37 | DRG 871 ==
LOC: ER 06:13 → MICUSO 08:57 → EDBEDREQTM 09:00 → EDBEDREQ 09:00 → ENRESERV 13:19 → MICUNO 21:38 → MICUSO 01-21 02:00 → 6WST 01-26 22:44
PROVIDERS: ADMIT Internal Medicine; ATTEND Internal Medicine
PROC: 5A1945Z Respiratory Ventilation, 24-96 Consecutive Hours (ICD-10-PCS; principal; 2020-01-20)
PROC: 0BH17EZ Insertion of Endotracheal Airway into Trachea, Via Natural or Artificial Opening (ICD-10-PCS; 2020-01-20)
PROC: 02HV33Z Insertion of Infusion Device into Superior Vena Cava, Percutaneous Approach (ICD-10-PCS; 2020-01-20)
PROC: B548ZZA Ultrasonography of Superior Vena Cava, Guidance (ICD-10-PCS; 2020-01-20)
PROC: 4A00X4Z Measurement of Central Nervous Electrical Activity, External Approach (ICD-10-PCS; 2020-01-28)
DX: A41.59 Other Gram-negative sepsis (principal); J96.00 Acute respiratory failure, unspecified whether with hypoxia or hypercapnia; J69.0 Pneumonitis due to inhalation of food and vomit; I50.33 Acute on chronic diastolic (congestive) heart failure; G92 Toxic encephalopathy; N17.9 Acute kidney failure, unspecified; E87.2 Acidosis; I45.2 Bifascicular block; D64.9 Anemia, unspecified; E87.5 Hyperkalemia; D50.9 Iron deficiency anemia, unspecified; D72.810 Lymphocytopenia; E11.9 Type 2 diabetes mellitus without complications; F03.90 Unspecified dementia, unspecified severity, without behavioral disturbance, psychotic disturbance, mood disturbance, and anxiety; F31.9 Bipolar disorder, unspecified; J44.9 Chronic obstructive pulmonary disease, unspecified; G47.30 Sleep apnea, unspecified; I11.0 Hypertensive heart disease with heart failure; I34.0 Nonrheumatic mitral (valve) insufficiency; J84.10 Pulmonary fibrosis, unspecified; Z20.828 Contact with and (suspected) exposure to other viral communicable diseases; R74.0 Nonspecific elevation of levels of transaminase and lactic acid dehydrogenase [LDH]; D69.6 Thrombocytopenia, unspecified; Z79.899 Other long term (current) drug therapy; Z79.82 Long term (current) use of aspirin; Z78.1 Physical restraint status
CPT/HCPCS: 36415; 36600; 70551; 71045; 71250; 74176; 76700; 78580; 80048; 80053; 80061; 80076; 80165; 80202; 80305; 80320; 81003; 82140; 82270; 82375; 82550; 82553; 82607; 82805; 82962; 83036; 83540; 83550; 83605; 83735; 83880; 84100; 84132; 84145; 84153; 84439; 84443; 84478; 84484; 85014; 85018; 85025; 85044; 85379; 86850; 86900; 87070; 87077; 87186; 87449; 92523; 92610; 93005; 93306; 93970; 94003; 94640; 95816; 97162; 97167; 99291; J0692; J1630; J1650; J1815; J2185; J2543; J2704; J2920; J3370; J3490; J7050; J7060; J7512; G0103; G0480; U0003-CS